=== PATIENT | female | born 1995 | race Caucasian/White ===

== ENCOUNTER → 2016-09-20 | Outpatient (CLI) | payer OTHER ==
[~2016-09-20] MED LIST: AMX875 PO; HYDR1CAP85 PO; HYDRPOW37 PO; IBUP-103 PO; IUD'IUD INT UTER; LAMO100T PO; LORA-741 PO; LURA40TA PO; WLLSR100 PO
--- NOTE | 2016-09-20 07:21 | DIAGNOSTIC IMAGING REPORT ---
ABDOMEN COMPLETE (US) CLINICAL HISTORY: Abdominal pain COMPARISON STUDY: No previous studies for comparison. FINDINGS: The liver appears sonographically normal. The gallbladder appears sonographically normal. The pancreas appears sonographically normal. There is no ductal dilatation. The common bile duct measures 4 mm. Spleen measures 9.9 cm in length. No splenic masses are visualized. The right kidney measures 10 cm in length. The left kidney measures 9.3 cm in length. No renal masses are visualized. There is no hydronephrosis. There is no abdominal aortic dilatation. IMPRESSION: Normal ultrasound of the upper abdomen. Electronically signed by: Emery Ayala M.D. 09/20/2016 7:19 AM Dictated Date/Time: 09/20/2016 7:17 AM
== END | disposition home or self-care (01) ==
LOC: C.ULTR 06:27
PROVIDERS: ATTEND Internal Medicine Gastroenterology
DX: R10.13 Epigastric pain (principal)

== ENCOUNTER 2016-11-12 16:11 | Emergency (ER) | payer OTHER ==
[~2016-11-12] VITALS: Ht 162.6 cm; Wt 55.7 kg
[2016-11-12 16:12] VITALS: TEMP 36.7; Ht 162.6 cm; Wt 55.7 kg
[2016-11-12] MEDS ORDERED: IUD'IUD INT UTER (16:34)
[2016-11-12] MEDS ORDERED: LAMO100T PO (16:34)
[2016-11-12] MEDS ORDERED: WLLSR100 PO (16:34)
[2016-11-12] MEDS ORDERED: IBUP-103 PO (16:34)
[2016-11-12] MEDS ORDERED: AMX875 PO (16:34)
--- NOTE | 2016-11-12 16:56 | EMERGENCY ROOM VISIT NOTE ---
ED Visit Note First contact with patient: 16:18 CHIEF COMPLAINT: Rash HISTORY OF PRESENT ILLNESS: This 21-year-old female patient presents to the emergency department complaining of a rash on her thighs and arms which started yesterday. The patient denies fever, chills, nausea, sore throat, mouth sores , or loss of appetite. They deny any URI symptoms. The patient has tried no medications for the rash. The patient states the rash is itchy but not painful. She does report several food allergies, but denies any known exposure. No change in food, soap, detergents, or other environmental factors. No weakness or numbness. Patient states she was recently started back on Lamictal 100 mg one week ago, which she had previously been taking, but had not been on on it for about a month. She also is scheduled to have her wisdom teeth out tomorrow and had an infected tooth, she was started on amoxicillin 5 days ago to treat this. She states she has been on amoxicillin before without any difficulty. 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 REVIEW OF SYSTEMS: A 6 system review of systems was completed with positives and pertinent negatives listed in the HPI. ALLERGIES: See chart MEDICATIONS: See chart PMH: See chart SOCIAL HISTORY: See chart PHYSICAL EXAM: Vital Signs: Reviewed Nurse's notes, vital signs stable. GENERAL : Pleasant and cooperative, in no acute distress, nontoxic appearing, well- developed, well-nourished. SKIN: There is a pink, maculopapular rash noted on the bilateral inner thighs and bilateral forearms, blanching, nontender, no open areas, drainage, or blisters noted. No oral lesions or pharyngitis. No throat or tongue swelling. No conjunctivitis. No lymphadenopathy. Heart sounds normal S1 and S2, regular rate and rhythm, 2+ pulses all 4 extremities, capillary refill less than 2 seconds. Lungs are clear to auscultation bilaterally with no wheezes, stridor, rhonchi. Equal expansion bilaterally. Abdomen is soft, nontender, nondistended, normal bowel sounds throughout. EMERGENCY DEPARTMENT COURSE: I examined the patient. Differential diagnosis includes contact dermatitis, food allergy, drug eruption, less likely Larsen- Karthik syndrome. Given the lack of history for any contact or food exposures to explain patient's rash, I am concerned she is having an allergic reaction to one of the medications she is taking. Her rash does seem more consistent with an allergic reaction to amoxicillin. Patient does not have any clinical exam findings concerning for Larsen-Karthik syndrome at this time and is very well appearing. 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 I also instructed her to stop taking the amoxicillin. She is to follow-up with her PCP as well. Patient verbalized understanding of all instructions and plan. Patient was discharged home in stable condition and ambulatory. Patient was discussed with Dr. Davila, who also evaluated the patient and agrees with my assessment and disposition. Current/Historical Medications Scheduled Amoxicillin (Amoxicillin), 875 MG PO DIRECTED Bupropion HCl (Bupropion HCl Sr), 100 MG PO QAM Iud's (Paragard Intrauterine Line Leader), 1 DOSE INT UTER DIRECTED Lamotrigine (Lamictal), 100 MG PO DAILY Scheduled PRN Ibuprofen Tab (Advil), 200-600 MG PO Q4H PRN for Pain Allergies Coded Allergies: Gluten (Verified Allergy, Severe, SEVERE GI UPSET, 11/12/16) Nut Tree (Verified Allergy, Severe, HIVES, 11/12/16) Ondansetron (Verified Allergy, Severe, "SEVERE ANXIETY" PER PT, 11/12/16) Peanut (Verified Allergy, Severe, ANAPHYLAXIS, 11/12/16) Uncoded Allergies: ANTIEMETICS (Allergy, Severe, "SEVERE ANXIETY" PER PT, 11/12/16) SEAFOOD (Allergy, Unknown, POSITIVE ALLERGY TEST, 11/12/16) Vital Signs Date Time Temp Pulse Resp B/P (MAP) Pulse Ox O2 Delivery O2 Flow Rate FiO2 11/12/16 17:03 83 18 113/83 97 Room Air 11/12/16 16:12 36.7 111 18 131/57 99 Room Air Departure Information Impression Primary Impression: Skin rash Dispostion Home / Self-Care Condition GOOD Referrals No Doctor, Assigned (PCP) Patient Instructions ED Drug React Allergic, My [facility] Additional Instructions STOP taking the Lamictal and the Amoxicillin now. You should follow up with your psychiatrist regarding starting a different medication for your bipolar depression. Keep the skin clean and dry. Avoid any new lotions, soaps, or detergents. You may take Benadryl (25 mg) 1-2 capsules every 6-8 hours as needed for rash and itching. This medication may make you drowsy, so use caution when taking it. Return to the emergency department for and worsening symptoms, including fevers/ chills or feeling ill, rash or sores in your mouth, painful swollen lymph nodes , or if your rash develops blisters or peeling skin, or for any signs of infection of the rash (increasing redness, swelling, pus drainage).
[2016-11-12 17:03] VITALS: BP 113/83; PULSE 83; O2SAT 97
== END 2016-11-12 17:20 | disposition home or self-care (01) ==
LOC: C.EDB 16:12 → C.EDD 17:20
DX: R21 Rash and other nonspecific skin eruption (principal)

== ENCOUNTER 2016-12-01 09:31 | Emergency (ER) | payer OTHER ==
[~2016-12-01] VITALS: Ht 160 cm; Wt 56.8 kg
[~2016-12-01 09:31] MED LIST changes: -HYDR1CAP85 PO; -HYDRPOW37 PO; -LORA-741 PO; -LURA40TA PO
[2016-12-01 09:39] VITALS: TEMP 36.7; Ht 160 cm; Wt 56.8 kg
[2016-12-01] MEDS ORDERED: LURA40TA PO (10:08)
[2016-12-01] MEDS ORDERED: LORA-741 PO (10:08)
[2016-12-01] MEDS ORDERED: HYDRPOW37 PO (10:13)
[2016-12-01 10:17] LABS: HEMATOCRIT 43.5 % (37-47); MEAN CELL VOLUME 86.8 fL (80-100); MEAN CORPUSCULAR HEMOGLOBIN 30.1 pg (25-34); MEAN CORPUSCULAR HGB CONC 34.7 g/dl (32-36); MEAN PLATELET VOLUME 9.6 fL (7.4-10.4); PLATELET COUNT 363 K/uL (130-400); RED BLOOD COUNT 5.01 M/uL (4.2-5.4); WHITE BLOOD COUNT 7.69 K/uL (4.8-10.8)
[2016-12-01 10:30] LABS: PROTHROMBIN TIME (PATIENT) 10.7 SECONDS (9.0-12.0)
[2016-12-01 10:47] LABS: ALKALINE PHOSPHATASE 113 U/L (45-117); ALT/SGPT 19 U/L (12-78); AST/SGOT 18 U/L (15-37); BLOOD UREA NITROGEN 6 mg/dl (7-18); BUN/CREATININE RATIO 7.7 (10-20); CALCIUM 9.1 mg/dl (8.5-10.1); CARBON DIOXIDE 24 mmol/L (21-32); CHLORIDE 108 mmol/L (98-107); CREATININE 0.82 mg/dl (0.60-1.20); GLUCOSE 87 mg/dl (70-99); POTASSIUM 3.9 mmol/L (3.5-5.1); SODIUM 140 mmol/L (136-145)
--- NOTE | 2016-12-01 10:51 | EMERGENCY ROOM VISIT NOTE ---
History Report prepared by Genevieve: Mikhail Willard Under the Supervision of: Dr. Karen Patterson M.D. First contact with patient: 10:17 Chief Complaint: CARDIAC ASSESSMENT Stated Complaint: ANXIETY, RESTLESSNESS, IRREGULAR EKG Nursing Triage Summary: Pt reports waking up at 0530 with anxiety. Palpitations, Restlessness. Took 0.5 Ativan did not help. Went to [facility]. They said her EKG said normal but wasn't normal. Patient states she felt like this in the past after taking Zofran. She states she just started taking Latuda. Began a week ago 20mg and last night increased dose to 40mg. History of Present Illness The patient is a 21 year old female who presents to the Emergency Room with complaints of constant palpitations beginning 5 hours ago. The patient states that she woke up in the middle of the night and her heart was racing, and she had to get up and walk around briskly. She reports that she thought it was an anxiety attack. The patient notes that she waited 2.5 hours and then went to [facility]. She states that they told her she had an abnormal EKG and to come to the ED. The patient reports that she has a history of Bi-Polar 2 disorder, and she is taking Latuda. She notes that she increased her dose from 20mg to 40mg last night, and she believes this is the cause. The patient states that she has had anxiety issues before when she was given Zofran. She denies recent trips. Source of History: patient Onset: 5 hours ago Position: chest Quality: other (palpitations) Timing: constant Note: Denies: recent travel Review of Systems See HPI for pertinent positives & negatives. A total of 10 systems reviewed and were otherwise negative. Past Medical & Surgical Medical Problems: (1) Bipolar 2 disorder Family History Cancer Diabetes mellitus Gallbladder disease Heart disease Hypertension Kidney disease Kidney stones Lung disease Social History Smoking Status: Never Smoker Smokeless Tobacco Use: No Alcohol Use: occasionally Marital Status: single Occupation Status: unemployed Current/Historical Medications Scheduled Hydroxyzine Hcl (Bulk) (Hydroxyzine Hcl), 0 PO QAM Iud's (Paragard Intrauterine [place] Cutting Machine Operator), 1 DOSE INT UTER DIRECTED Lurasidone Hcl (Latuda), 40 MG PO HS Scheduled PRN Lorazepam (Ativan), 0.5 MG PO Q6H PRN for Anxiety/Agitation Allergies Coded Allergies: Gluten (Verified Allergy, Severe, SEVERE GI UPSET, 12/01/16) Nut Tree (Verified Allergy, Severe, HIVES, 12/01/16) Ondansetron (Verified Allergy, Severe, "SEVERE ANXIETY" PER PT, 12/01/16) Peanut (Verified Allergy, Severe, ANAPHYLAXIS, 12/01/16) Uncoded Allergies: ANTIEMETICS (Allergy, Severe, "SEVERE ANXIETY" PER PT, 11/12/16) SEAFOOD (Allergy, Unknown, POSITIVE ALLERGY TEST, 11/12/16) Physical Exam Vital Signs Date Time Temp Pulse Resp B/P (MAP) Pulse Ox O2 Delivery O2 Flow Rate FiO2 12/01/16 11:26 74 18 125/74 99 Room Air 12/01/16 10:09 89 12/01/16 09:55 97 Room Air 12/01/16 09:39 36.7 99 18 126/92 98 Room Air Physical Exam Vital signs reviewed. General: Well-appearing 21 year old female, in no significant distress. HEENT: No scleral icterus, PERRLA, neck supple. Atraumatic. Cardiovascular: Regular rate and rhythm, no extra sounds. Pulmonary: Clear to auscultation bilaterally, normal work of breathing. Abdomen: Soft, nontender, nondistended, positive bowel sounds. Musculoskeletal: Atraumatic, no peripheral edema. Neurologic: Patient awake alert and oriented x 3, full strength in all 4 extremities. Cranial nerves 2 through 12 grossly intact. Skin: Warm, dry, no rash Medical Decision & Procedures ER Provider Diagnostic Interpretation: X-ray results as stated below per interpretation by me and the radiologist: CHEST ONE VIEW PORTABLE HISTORY: 21 years-old Female acute chest pain and palpitations COMPARISON: None available TECHNIQUE: Upright AP view of the chest FINDINGS: Cardiomediastinal and hilar silhouettes are within normal limits. There is no pneumothorax, pleural effusion or focal airspace consolidation. No overt pulmonary edema. Bones are grossly intact. IMPRESSION: No acute cardiopulmonary process. The above report was generated using voice recognition software. It may contain grammatical, syntax or spelling errors. Electronically signed by: Mikhail Zimmer M.D. 12/01/2016 10:49 AM Dictated Date/Time: 12/01/2016 10:48 AM Laboratory Results 12/01/16 09:55 12/01/16 09:55 Test 12/01/16 09:55 12/01/16 11:20 Red Blood Count 5.01 M/uL (4.2-5.4) Mean Corpuscular Volume 86.8 fL (80-100) Mean Corpuscular Hemoglobin 30.1 pg (25-34) Mean Corpuscular Hemoglobin Concent 34.7 g/dl (32-36) RDW Standard Deviation 40.7 fL (36.4-46.3) RDW Coefficient of Variation 12.8 % (11.5-14.5) Mean Platelet Volume 9.6 fL (7.4-10.4) Prothrombin Time 10.7 SECONDS (9.0-12.0) Prothromb Time International Ratio 1.0 (0.9-1.1) Activated Partial Thromboplast Time 26.6 SECONDS (21.0-31.0) Partial Thromboplastin Ratio 1.0 Anion Gap 8.0 mmol/L (3-11) Est Creatinine Clear Calc Drug Dose 88.2 ml/min Estimated GFR () 116.9 Estimated GFR (Non- 100.9 BUN/Creatinine Ratio 7.7 (10-20) Calcium Level 9.1 mg/dl (8.5-10.1) Total Bilirubin 0.4 mg/dl (0.2-1) Aspartate Amino Transf (AST/SGOT) 18 U/L (15-37) Alanine Aminotransferase (ALT/SGPT) 19 U/L (12-78) Alkaline Phosphatase 113 U/L (45-117) Total Creatine Kinase 74 U/L (26-192) Creatine Kinase MB < 0.5 ng/ml (0.5-3.6) Creatine Kinase MB Ratio (0-3.0) Total Protein 8.3 gm/dl (6.4-8.2) Albumin 4.2 gm/dl (3.4-5.0) Globulin 4.1 gm/dl (2.5-4.0) Albumin/Globulin Ratio 1.0 (0.9-2) Chemistry Specimen Hemolysis Bedside D-Dimer 436 ng/mlFEU (0-450) Laboratory results per my review. Medications Administered Medications (Trade) Dose Ordered Sig/Jenni Route Start Time Stop Time Status Last Admin Dose Admin Hydroxyzine HCl (Vistaril Tab) 25 mg NOW STAT PO 8/27/17 11:39 12/01/16 11:40 DC 12/01/16 11:51 25 MG ECG Indication: palpitations Rate (beats per minute): 86 Rhythm: normal sinus Findings: no acute ischemic change, no ectopy ED Course 1042: Past medical records reviewed. The patient was evaluated in room A10. A complete history and physical examination was performed. 1139: Ordered Hydroxyzine HCl 25mg PO Medical Decision Differential diagnoses includes acute coronary syndrome, pulmonary embolus, aortic dissection, musculoskeletal pain, pneumonia, pleural effusion, pneumothorax, gastritis, peptic ulcer disease. This patient was evaluated and appeared to be in no significant distress. Physical examination is unrevealing. EKG was reviewed and to my interpretation reveals no acute abnormalities. Patient's laboratory work reveals a negative d- dimer, unrevealing otherwise. Chest x-ray is negative. I do suspect the patient's symptoms are related to her medication, Latuda. She did increase the dose from 20-40 mg yesterday. She will drop down to 30 mg for several days and then up to 40 mg daily. He will contact her psychiatrist if issues persist. The patient will return to the ER for worsening of symptoms or any medical concerns. Impression Primary Impression: Palpitations Scribe Attestation The scribe's documentation has been prepared under my direction and personally reviewed by me in its entirety. I confirm that the note above accurately reflects all work, treatment, procedures, and medical decision making performed by me. Departure Information Dispostion Home / Self-Care Referrals No Doctor, Assigned (PCP) Forms IMPORTANT VISIT INFORMATION Patient Instructions ED Palpitations, My [facility] Additional Instructions Diagnosis: Heart palpitations Take 30 mg for latuda daily for 3-4 days, then increase to 40 mg daily. Drink plenty of water. Avoid caffiene, nicotine and alcohol. Follow up with your doctor this week for reevaluation. Return to the ED for worsening of symptoms or any medical concerns.
[2016-12-01 11:26] VITALS: BP 125/74; PULSE 74; O2SAT 99
[2016-12-01] MEDS ORDERED: hydrOXYzine HCL 25 MG TAB PO STA (11:39)
[2016-12-01] MEDS ORDERED: HYDR1CAP85 PO (15:18)
== END 2016-12-01 12:08 | disposition home or self-care (01) ==
LOC: C.EDB 09:33 → C.EDA 12:08
DX: R00.2 Palpitations (principal); F31.9 Bipolar disorder, unspecified; Z83.3 Family history of diabetes mellitus; Z82.49 Family history of ischemic heart disease and other diseases of the circulatory system